=== PATIENT | female | born 1955 | race Caucasian/White ===

== ENCOUNTER 2021-05-10 16:32 | Emergency (ER) | payer OTHER ==
--- OUTSIDE RECORDS SUMMARY | 2021-05-10 16:35 | XMS REPORT | Continuity of Care Document ---
:[address] [facility] t Address [address] [place] [address] Care Team Providers Name Role Phone LENASINTIASHAWNEE Primary Care Physician Unavailable Jagdish Attending Clinician Unavailable GERALD Attending Clinician Unavailable LAB90 Attending Clinician Unavailable Gerald HICKMAN Attending Clinician Virgilio LOPES Attending Clinician VIRGILIO Attending Clinician Unavailable Doctor Unassigned, Name Attending Clinician Unavailable Isabel RN, T Attending Clinician Unavailable Elmer LOPES, H Attending Clinician Only, Db Test Attending Clinician Unavailable Vasiliy MALDONADOP Attending Clinician Provider, Db Urgent Care Attending Clinician Unavailable JUAN Attending Clinician Unavailable SIDDHARTH Attending Clinician Unavailable MD MOOK MESSINA Attending Clinician Unavailable THEAndrews Attending Clinician Unavailable PRASANNABURR Attending Clinician Unavailable VIRGILIO Admitting Clinician Unavailable SIDDHARTH Admitting Clinician Unavailable MD MOOK MESSINA Admitting Clinician Unavailable Payers Payer Name Policy Type Policy Number Effective Date Expiration Date S ozzie HUMANA MEDICARE 7 [id number] 2021 [id number] GOLD 00:00:00 PLUS 2021 Problems Condition Condition Condition Status Onset Resolution Last Treating Co mments Source Name Details Category Date Date Treatment Clinician Date Primary Primary Disease Active Haley hypertensi hypertensi 3-14 Se ybold on on 00:00: 00 Bipolar 1 Bipolar 1 Disease Active Cruz sey disorder disorder 3-14 Seybol d 00:00: 00 Mixed Mixed Disease Active Haley hyperlipid hyperlipid 3-14 Se ybold emia emia 00:00: 00 Simple Simple Disease Active Haley chronic chronic 3-14 Seybold bronchitis bronchitis 00:00: 00 Herpes Herpes Disease Active Haley simplex simplex 3-14 Seybold infection infection 00:00: of of 00 genitourin genitourin lg system lg system Herpes Herpes Disease Active Haley labialis labialis 3-14 Seybol d 00:00: 00 Allergies, Adverse Reactions, Alerts Allergy Allergy Status Severity Reaction(s) Onset Inactive Treating Comm ents Source Name Type Date Date Clinician Sulfa Propensi Active Itching Haley Drugs ty to 3-14 Seybold adverse 00:00: reaction 00 s Sulfa Propensi Active Itching Univers (Sulfona ty to 1-15 ity of mide adverse 00:00: [place] Antibiot reaction 00 Medica l ics) s Branch SULFA Drug Active ITCHING Univers (SULFONA Class 1-15 ity of MIDE 00:00: [place] ANTIBIOT 00 Medical ICS) Branch NO KNOWN Drug Active Univers ALLERGIE Class ity of S [facility] Branch Social History Social Habit Start Date Stop Date Quantity Comments Source Exposure to Not sure [facility] SARS-CoV-2 [place] [facility] (event) Branch History of Cigarette Smoker Haley Mahogany mccainboestevan tobacco use Sex [birth year] Haley jimenez 00:00:00 00:00:00 Smoking Status Start Date Stop Date Source Unknown if ever smoked Universit y [facility] [place] [facility] Branch Smokes tobacco daily 2021-05-08 00:00:00 Haley Fredy Medications Ordered Filled Start Stop Current Ordering Indication Dosage Frequency Signature Comments Components Source Medication Medication Date Date Medication? Clinician (SIG) Name Name Budesonide- 2021- No INHALE 2 K hernandoy Formoterol 05-08 PUFFS Seybold Fumarate 11:43: 00:00 TWICE 160-4.5 18 :00 DAILY MCG/ACT inhalation Aerosol Duloxetine 2021- No TAKE 1 Claudia mccain HCl 60 MG 3-14 03-14 CAPSULE BY Sey bold oral Cap DR 11:43: 00:00 MOUTH Particles 18 :00 TWICE A DAY for 90 Levocetiriz 2021- No TONY 1 Claudia ey ine -08 05-14 TABLET BY Seybold Dihydrochlo 11:43: 00:00 MOUTH IN ride 5 MG 18 :00 THE oral Tablet EVENING ONCE A DAY for 90 Montelukast 2021- No TAKE 1 Cruz sey (SINGULAIR) -08 05-14 TABLET BY Se ybold 10 MG oral 11:43: 00:00 MOUTH ONCE Tablet 18 :00 A DAY for tablet 90 days Nebivolol 2021- No TAKE 1 Kelse y HCl 5 MG -08 05- TABLET BY Seybo ld oral Tablet 11:43: 00:00 MOUTH ONCE 18 :00 A DAY for 90 days Trazodone 2021- No every 24 Cruz sey HCl 150 MG -14 -14 hours Seybold oral Tablet 11:43: 00:00 18 :00 Aripiprazol 2021- No 15mg Take 15 mg Haley e (Abilify) -08 05-14 by mouth Sey bold 15 MG oral 11:43: 00:00 in the Tablet 18 :00 morning and 15 mg in the evening. Ibuprofen Yes 1 tab Oral Ke lsey 600 MG oral 3-14 q 6 hours Sey bold Tablet 10:52: 47 Nitroglycer Yes 1 tab(s) Ke lsey in 0.4 3-14 SL prn Seybold MG/HR 10:52: transdermal 47 PATCH 24 HR Ezetimibe Yes TAKE 1 Haley 10 MG oral 3-14 TABLET BY Seyb old Tablet 10:52: MOUTH ONCE 47 A DAY for 90 days FLUTICASONE Yes USE 2 Kelse y PROPIONATE, 3-14 SPRAYS IN Sey bold NASAL, 50 10:52: EACH MCG/ACT 47 NOSTRIL nasal TWICE Suspension DAILY for 30 Valacyclovi Yes [id number] 500mg Take 1 Haley r HCl 3-14 tablet Seybold (Valtrex) 00:00: (500 mg 500 MG oral 00 total) by Tablet mouth in the morning and 1 tablet (500 mg total) in the evening. Nebivolol Yes [id number] 5mg Take 1 Ke lsey HCl 5 MG 3-14 tablet (5 Seybol d oral Tablet 00:00: mg total) 00 by mouth in the morning. Aripiprazol Yes [id number] 15mg Take 1 Haley e (Abilify) 3-14 tablet (15 Se ybold 15 MG oral 00:00: mg total) Tablet 00 by mouth in the morning and 1 tablet (15 mg total) in the evening. Duloxetine Yes [id number] 60mg Take 1 Haley HCl 60 MG 3-[address] oral Cap DR 00:00: (60 mg Particles 00 total) by mouth in the morning and 1 capsule (60 mg total) in the evening. Albuterol Yes [id number] 1{vial} Take 1 Haley (PROVENTIL) 3-14 vial by Seybo ld (2.5 00:00: nebulizati MG/3ML) 00 on every 6 0.083% (six) inhalation hours Inhalant Solution Budesonide- Yes [id number] 2{puff} Inhale 2 Haley Formoterol 3-14 puffs into Sey bold Fumarate 00:00: the lungs 160-4.5 00 in the MCG/ACT morning inhalation and 2 Aerosol puffs in the evening. Gabapentin Yes [id number] 600mg Take 1 Haley 600 MG oral 3-14 tablet Seybol d Tablet 00:00: (600 mg 00 total) by mouth in the morning and 1 tablet (600 mg total) in the evening. Levocetiriz 0 Yes [id number] 5mg Take 1 Haley ine 3-14 tablet (5 Seybold Dihydrochlo 00:00: mg total) ride 5 MG 00 by mouth oral Tablet every day at 5:00 PM Montelukast 2021-0 Yes [id number] 10mg Take 1 Haley (SINGULAIR) 3-14 tablet (10 Se ybold 10 MG oral 00:00: mg total) Tablet 00 by mouth tablet nightly Pregabalin 0 Yes [id number] 150mg Take 1 Haley 150 MG oral 3-14 capsule Seybo ld Capsule 00:00: (150 mg 00 total) by mouth 3 times daily Trazodone Yes [id number] 100mg Take 1 Haley HCl 100 MG - tablet Seybold oral Tablet 00:00: (100 mg 00 total) by mouth every 24 hours Diclofenac Yes TAKE 1 Kelse y Sodium 75 -09 TABLET BY Seybo ld MG oral 00:00: MOUTH 2 Tablet 00 TIMES Delayed DAILY WITH Response MEALS FOR MUSCLE/KYLE NT/BACK PAIN AND INFLAMMATI ON Gabapentin 2021- No TAKE 1 Claudia ey 600 MG oral 05-03 TABLET(S) Se ybold Tablet 00:00: 00:00 BY MOUTH 00 :00 TWICE DAILY FOR NERVE PAIN Pregabalin 2021- No 1{capsu 1 capsule Haley 150 MG oral 04-27 le} every 6 Seyb old Capsule 00:00: 00:00 (six) 00 :00 hours Ipratropium 2021- Yes every 6 Ke lsey [place] HFA 03-20 () Seybol d 17 MCG/ACT 00:00: 04:59 hours inhalation 00 :00 Aerosol Solution NaCl 0.9% 2021- No 1000mL at 999 Uni vers (NS) bolus 1-15 01-15 mL/hr, ity of infusion 16:15: 17:50 1,000 mL, Vern as 1,000 mL 00 :00 IV Medical Infusion, Branch ONCE, 1 dose, On 03/11/21 at 1015, STAT methocarbam Yes [id number] 500mg Take 1 Univers oL 500 mg 1-15 tablet by ity o f tablet 00:00: mouth 4 [place] 00 (four) Medical times Branch daily. Nebulizer Yes as Haley does not 05-19 directed Seybfazal apply Misc 00:00: inhalation 00 as directed for 30 days Albuterol 2021- No every 6 Claudia ey (PROVENTIL) 05-19-14 (six) Seybol d (2.5 00:00: 00:00 hours MG/3ML) 00 :00 0.083% inhalation Inhalant Solution Immunizations Ordered Immunization Filled Immunization Date Status Commen ts Source Name Name Covid-19 Vaccine 2020-11-02 Completed Haley S eybold Moderna (Spikevax), 00:00:00 Mrna-lnp, Jeremi Protein, Pf Covid-19 Vaccine 2020-10-05 Completed Haley bhardwaj Moderna (Spikevax), 00:00:00 Mrna-lnp, Jeremi Protein, Pf Pneumococcal 2020-06-23 Completed Haley Sheppard ld Vaccine, Conjugate 00:00:00 13 Vital Signs Vital Name Observation Time Observation Value Comments Source Systolic blood 2021-05-08 15:33:00 118 mm[Hg] Haley Daniel pressure Diastolic blood 2021-05-08 15:33:00 72 mm[Hg] Marily Daniel pressure Heart rate 2021-05-08 15:33:00 76 /min Haley bhardwaj Body temperature 2021-05-08 15:33:00 36.56 Meme Claudia Daniel Respiratory rate 2021-05-08 15:33:00 12 /min Claudia mccain Seybfazal Body height 2021-05-08 15:33:00 165.1 cm Haley bhardwaj Body weight 2021-05-08 15:33:00 81.647 kg Haley bhardwaj BMI 2021-05-08 15:33:00 29.95 kg/m2 Haley bhardwaj Diastolic blood 2021-03-11 17:50:00 72 mm[Hg] [facility] Heart rate 2021-03-11 17:50:00 64 /min [facility] Respiratory rate 2021-03-11 17:50:00 14 /min [facility] Oxygen saturation in 2021-03-11 17:50:00 100 /min [facility] Arterial blood by [facility] Pulse oximetry Branch Systolic blood 2021-03-11 17:50:00 111 mm[Hg] [facility] Body temperature 2021-03-11 14:14:00 36.67 Meme [facility] Body height 2021-03-11 14:14:00 165.1 cm [facility] Body weight 2021-03-11 14:14:00 90.719 kg [facility] BMI 2021-03-11 14:14:00 33.28 kg/m2 [facility] Procedures Procedure Date / Time Performing Clinician Source Performed CT HEAD WO CONTRAST 2021-03-11 15:35:45 Tony Poole [facility] XR SACRUM AND COCCYX 2021-03-11 15:34:59 [facility] XR HIPS 2 VW RIGHT 2021-03-11 15:34:59 Tony Poole [facility] XR SHOULDER 2+ VW LEFT 2021-03-11 15:34:59 Tony Poole [facility] TROPONIN I 2021-03-11 14:58:00 Tony Poole [facility] COMP. METABOLIC PANEL 2021-03-11 14:58:00 Tony Poole [facility] ([id number]) [facility] Branch ETHANOL 2021-03-11 14:58:00 Tony Poole [facility] CBC WITH DIFF 2021-03-11 14:58:00 Tony Poole [facility] PROTHROMBIN TIME / INR 2021-03-11 14:58:00 Tony Poole [facility] ACTIVATED PARTIAL 2021-03-11 14:58:00 Tony Poole [facility] THRMPLAS [facility] URINALYSIS 2021-03-11 14:58:00 Tony Poole [facility] N-TERMINAL PRO-BNP 2021-03-11 14:58:00 Tony Poole [facility] COVID-19 (ID NOW RAPID 2021-03-11 14:58:00 Tony Poole [facility] TESTING) [facility] URINE DRUG (IMMUNOASSAY) 2021-03-11 14:58:00 Tony Poole [facility] DRUG Medical [facility] SCREEN W/O REFLEX NOTICE OF PRIVACY 2021-03-11 13:50:52 Doctor Unassigned, No Univ [facility] PRACTICES Name Medical Branch Encounters Start End Encounter Admission Attending Care Care Encounter Source Date/Time Date/Time Type Type Clinicians Facility Department ID 2021-05-04 [facility] [id number] Health 10:01:02 Saman 0310 [facility] 2021-04-27 Outpatient Jagdish, H[facility] H[facility] [id number] Health 11:49:01 Saman 0303 [facility] 2021-03-22 Out[facility] Jagdish[facility] [id number] [facility] Health 14:37:48 Saman 0119 [facility] 2021-03-22 [facility] Jagdish[facility] [id number] 22 Health 14:36:59 Saman 0118 [facility] 2021-03-22 [facility] [id number] 22 Health 14:35:22 Saman 0113 [facility] 2021-03-22 Outpatient Jagdish, [facility] [id number] 22 Health 14:34:18 Saman 0112 [facility] 2021-03-22 [facility] [id number] 21 Health 14:25:39 Saman 1216 [facility] 2021-03-22 [facility] [id number] 21 Health 14:24:46 Saman 1214 [facility] 2021-03-22 [facility] [id number] Health 14:15:52 Saman 1119 [facility] 2021-03-22 [facility]ish[facility] [id number] 21 Health 14:02:11 Saman 1019 [facility] 2021-03-22 [facility] [id number] 21 Health 13:31:51 Saman 0729 [facility] 2021-03-22 Out[facility] Jagdish[facility] [id number] 21 Health 13:06:03 Saman LOPES 0521 Cent er [facility] 2021-03-22 Out[facility] Jagdish, [facility] [id number] 21 Health 13:05:29 Saman LOPES 0520 Cent er [facility] 2021-03-22 Out[facility], [facility] [id number] 21 Health 13:05:11 Saman LOPES 0519 Cent er [facility] 2021-03-22 Out[facility], [facility] [id number] 21 Health 13:02:40 Saman LOPES 0512 Cent er of [facility] 2021-03-22 Outpatient [facility]dish, [facility] [id number] 21 Health 13:01:16 Saman LOPES 0510 Cent er of [facility] 2021-03-22 [facility] [id number] 21 Health 12:58:20 Saman LOPES 0503 Cent er [facility] 2021-05-10 2021-05-10 Outpatient HALEY DUARTE [id number] Haley 00:00:00 00:00:00 CAROLANN Seybol d 2021-05-10 2021-05-10 Outpatient HALEY DUARTE [id number] Haley 00:00:00 00:00:00 CAROLANN Seybol d 2021-05-10 2021-05-10 Outpatient PREHALEY BARAHONA [id number] Haley 00:00:00 00:00:00 CAROLANN Seybol d 2021-05-08 2021-05-08 Outpatient LAB90 HALEY ABARCA [id number] Haley 11:55:00 11:55:00 Seybol d 2021-05-08 2021-05-08 Office Henok Duarte [id number] Haley 10:15:00 10:45:00 Visit Carolann Wang [id number] barbara [id number] 2021-05-08 2021-05-08 Outpatient HALEY DUARTE [id number] Haley 00:00:00 00:00:00 CAROLANN Seybol d 2021-05-03 2021-05-03 ambulatory HCSET HCSET [id number] Health 00:00:00 00:00:00 [facility] 2021-04-28 2021-04-28 ambulatory HCSET HCSET [id number] Health 00:00:00 00:00:00 [facility] 2021-04-27 2021-04-27 ambulatory HCSET HCSET [id number] Health 00:00:00 00:00:00 [facility] 2021-04-27 2021-04-27 ambulatory HCSET HCSET [id number] Health 00:00:00 00:00:00 [facility] 2021-04-26 2021-04-26 ambulatory HCSET HCSET [id number] Health 00:00:00 00:00:00 [facility] 2021-03-28 2021-03-28 amb[facility] [id number] Health 00:00:00 00:00:00 [facility] 2021-03-20 2021-03-20 ambulatory HCSET HCSET [id number] Health 00:00:00 00:00:00 [facility] 2021-03-15 2021-03-15 amb[facility] [id number] Health 00:00:00 00:00:00 [facility] 2021-03-15 2021-03-15 amb[facility] [id number] Health 00:00:00 00:00:00 [facility] 2021-03-11 2021-03-[address] [facility] [id number] Univers 08:20:00 11:53:00 Tony JONES [id number] i ty of [place] 4[place]2.7.2.686 [place] [facility] [id number] [facility] [address] 2021-03-11 2021-03-[address] [facility] ERT [id number] Univers 08:20:00 11:53:00 TONY artis [facility] 2021-03-11 2021-03-11 Orders Doctor DURAND [id number] Univers 00:00:00 00:00:00 Only Unassigned, FRITZ 350.1.13.10 ity of [place] [facility] 4.2.7.2.686 Vern as [id number] [facility] 009 Branch 2021-03-05 2021-03-05 Letter KIZZY Hall [id number] Univers 00:00:00 00:00:00 (Out) Kadie HU [id number] it y of [facility] 4.2.7.2.686 Vern as [id number] [facility] 019 Branch 2021-03-05 2021-03-05 Elisabeth Payne PACORIE [id number] Univers 00:00:00 00:00:00 (Out) [facility] [id number] i ty of [place] 4.2.7.2.686 Vern as SANTIAGO?BLEA [id number] Ar dical [facility] [address] MEDICAL OFFICE BUILDING 2021-03-03 2021-03-03 Laboratory Only, Ang Db Test [facility] 1.2.8 [id number] [facility] 20:45:00 20:48:56 Only Mariaelena Amanda [facility] [id number] ity of [place] 4.2.7.2.686 Vern as [place]O?BLEA [id number] Ar dical [address] MEDICAL OFFICE BUILDING 2021-03-03 2021-03-03 Letter Provider, [place] [id number] [facility] 00:00:00 00:00:00 (Out) Ang Db HEALTH [id number] it y of Urgent [facility] 4.2.7.2.686 [place] S[place]?BLEA [id number] [address] MEDICAL OFFICE [facility] 2021-01-20 2021-01-21 Emergency MARTINEZ, [facility] [id number] [place] 00:00:00 00:00:00 MYKEL 762 Method i 2020-12-06 2020-12-06 Outpatient [facility] [id number] 300 [place] 00:00:00 00:00:00 YASSIR 451 Method i 2020-12-02 2020-12-02 Outpatient SIDDHARTH, [facility] [id number] 301 [place] 00:00:00 00:00:00 YASSIR 279 Method i 2020-12-02 2020-12-02 Outpatient JAGDISH, [facility] [id number] [place] 00:00:00 00:00:00 SAMAN 321 Method i 2020-10-19 2020-10-19 Outpatient THEKDI, [facility] [id number] 350 [place] 00:00:00 00:00:00 BRIDGETT 226 Method i 2020-09-21 2020-09-21 Outpatient SIDDHARTH, [facility] [id number] [place] 00:00:00 00:00:00 YASSIR 513 Method i 2019-11-30 2019-11-30 Outpatient WOODBURR, [facility] [id number] [place] 00:00:00 00:00:00 JULIA [address] Results Test Description Test Time Test Comments Results Result Comments Source TROPONIN I 2021-03-11 16:12:56 Test Item Value Reference Range Interpretation Comme nts TROPONIN I (test code = 0.001 ng/mL See_Comment [Au tomated message] The [id number]) system which ge nerated this result tra nsmitted reference range : <=0.034. The reference r mimi was not used to int erpret this result as normal/abnormal . JANET (test code = JANET) Reference (Normal) Range (defined by the 99th percentile reference limit): <= 0.034 ng/mL Note: Cardiac troponin begins to rise 3-4 hours after the onset of ischemia. Repeat in 4-6 hours if the sample was drawn within 3-4 hours of the onset of the symptom and found normal. Diagnosis of myocardial injury is made with acute changes in cTn concentrations with at least one serial sample above the 99th percentile upper reference limit (URL), taken together with the patient's clinical presentation. Biotin has been reported to cause a negative bias, interpret results relative to patient's use of biotin. Lab Interpretation Normal (test code = 74043-5) [facility] [id number] 16:09:35 Test Item Value Reference Range Interpretation Comments NT-proBNP (test code 166 pg/mL See_Comment H [Autom ated = [id number]) message] The system which generated this result transmitted reference range : <=125. The reference range was not used to interpret this result as normal/abnormal . JANET (test code = JANET) Biotin has been reported to cause a negative bias, interpret results relative to patient's use of biotin. Lab Interpretation Abnormal (test code = 31483-3) [facility]22-[facility]-15 15:52:29 Test Item Value Reference Range Interpretation Comments ALCOHOL (test code = <10 mg/dL 3062411710) JANET (test code = JANET) <10 [id number] Toxic>100 Depression of [employer]>400 Fatalities Reported [facility] Worth[facility]. METABOLIC PANEL ([id number])2021-03-11 15:51:53 Test Item Value Reference Range Interpretation Comments NA (test code = 138 mmol/L 135-145 0400061847) K (test code = 4.2 mmol/L 3.5-5.0 5422309378) CL (test code = 102 mmol/L 98-108 8192349677) CO2 TOTAL (test code 30 mmol/L 23-31 = 1111446871) AGAP (test code = 2-16 0841734149) BUN (test code = 20 mg/dL 7-23 6026655096) GLUCOSE (test code = 96 mg/dL 70-110 3386101382) CREATININE (test code 0.61 mg/dL 0.50-1.04 = 8251680289) TOTAL BILI (test code 0.5 mg/dL 0.1-1.1 = 9325261372) CALCIUM (test code = 8.9 mg/dL 8.6-10.6 2349110620) T PROTEIN (test code 6.8 g/dL 6.3-8.2 = 4781560417) ALBUMIN (test code = 4.1 g/dL 3.5-5.0 9251552980) ALK PHOS (test code = 65 U/L 34-122 7806758902) ALTv (test code = 33 U/L 5-35 2-6) AST(SGOT) (test code 32 U/L 13-40 = 7084007319) eGFR (test code = mL/min/1.73m2 0359423831) JANET (test code = JANET) Association of Glomerular Filtration Rate (GFR) and Staging of Kidney Disease* + + +- +| GFR (mL/min/1.73 m2) ?| With Kidney Damage ?| ?Without Kidney Damage+ ------+ ----+ ------+| ?>90 ?| ?Stage one ?| ? Normal ?+ -+ + -+| ?60-89 ?| ?Stage two ?| ? Decreased GFR ? + + +- +| ?30-59 ?| ?Stage three ?| ? Stage three ? + + +- +| ?15-29 ?| ?Stage four ? | ? Stage four ?+ -+ + -+| ?<15 (or dialysis) ? ?| ?Stage five ? | ? Stage five ?+ -+ + -+ *Each stage assumes the associated GFR level has been in effect for at least three months. ?Stages 1 to 5, with or without kidney disease, indicate chronic kidney disease. Notes: Determination of stages one and two (with eGFR >59mL/min/1.73 m2) requires estimation of kidney damage for at least three months as defined by structural or functional abnormalities of the kidney, manifested by either:Pathological abnormalities or Markers of kidney damage (including abnormalities in the composition of the blood or urine or abnormalities in imaging tests). [facility] PARTIAL THRMPLAS [id number] 15:40:11 Test Item Value Reference Range Interpretation Comments APTT Patient (test See_Comment [Automat ed code = 3173-2) message] The system which generated this result transmitted reference range : 23 - 38 Seconds . The reference range was not used to interpr et this result as normal/abnormal . JANET (test code = JANET) The [facility] patient population mean normal value for aPTT is 30 seconds. Lab Interpretation Normal (test code = 52013-0) [facility] WorthPROTHROMBIN TIME / [id number] 15:37:35 Test Item Value Reference Range Interpretation Comments PROTIME PATIENT (test See_Comment [Auto mated message] code = 5964-2) The system wh ich generated this result transmitted ref erence range: 12.0 - 1 4.7 Seconds. The re ference range was not u sed to interpret this result as normal/abnor mal. INR (test code = 6301-6) Nor mal INR <1.1; Warfarin Therap eutic range 2.0 to 3. 0 or 2.5 to 3.5, dep ending upon the indica tions. Lab Interpretation (test Normal code = 24656-5) [facility] Worth[facility] WITH [id number] 15:21:31 Test Item Value Reference Range Interpretation Comments WBC (test code = See_Comment [Automated 2190-2) message] The sy stem which generated this result transmitted reference range : 4.30 - 11.10 10*3/?L. The reference range was not used to interpret this result as normal/abnormal . RBC (test code = See_Comment [Automated 089-8) message] The sy stem which generated this result transmitted reference range : 3.93 - 5.25 10*6/?L. The reference range was not used to interpret this result as normal/abnormal . HGB (test code = 14.6 g/dL 11.6-15.0 718-7) HCT (test code = 44.7 % 35.7-45.2 4544-3) MCV (test code = 97.0 fL 80.6-95.5 H 787-2) MCH (test code = 31.7 pg 25.9-32.8 785-6) MCHC (test code = 32.7 g/dL 31.6-35.1 786-4) RDW-SD (test code = 45.2 fL 39.0-49.9 85640-0) RDW-CV (test code = 12.6 % 12.0-15.5 788-0) PLT (test code = See_Comment [Automated 777-3) message] The sy stem which generated this result transmitted reference range : 166 - 358 10*3/ ?L. The reference r mimi was not used to interpret this result as normal/abnormal . MPV (test code = 10.7 fL 9.5-12.9 20350-6) NRBC/100 WBC (test See_Comment [Automat ed code = 0685162716) message] The system which generated this result transmitted reference range : 0.0 - 10.0 /100 WBCs. The refer ence range was not u sed to interpret th is result as normal/abnormal . NRBC x10^3 (test code <0.01 See_Comment [Auto mated = [id number]) message] The s ystem which generated this result transmitted reference range : 10*3/?L. The reference range was not used to interpret this result as normal/abnormal . GRAN MAT (NEUT) % 62.3 % (test code = 770-8) IMM GRAN % (test code 0.30 % = 3739727143) LYMPH % (test code = 23.0 % 736-9) MONO % (test code = 9.7 % 5905-5) EOS % (test code = 4.1 % 713-8) BASO % (test code = 0.6 % 706-2) GRAN MAT x10^3(ANC) 4.92 10*3/uL 1.88-7.09 (test code = 5232297278) IMM GRAN x10^3 (test <0.03 0.00-0.06 code = 2524566079) LYMPH x10^3 (test code 1.82 10*3/uL 1.32-3.29 = 731-0) MONO x10^3 (test code 0.77 10*3/uL 0.33-0.92 = 742-7) EOS x10^3 (test code = 0.32 10*3/uL 0.03-0.39 711-2) BASO x10^3 (test code 0.05 10*3/uL 0.01-0.07 = 704-7) Lab Interpretation Abnormal (test code = 28290-2) [facility] [Presence] in Respiratory specimen by NICKIE with probe [id number] 18:35:10 Test Item Value Reference Range Interpretation Comments SARS-CoV-2 (COVID-19) RNA Not detected Not-Detected [Presence] in Respiratory specimen by NICKIE with probe detection (test code = 29286-8) Whether patient is employed in a healthcare setting (test code = 43385-2) Whether the patient has symptoms related to condition of interest (test code = 65678-4) Patient was hospitalized because of this condition (test code = 69289-7) Whether the patient was admitted to intensive care unit (ICU) for condition of interest (test code = 96988-1) Whether patient resides in a congregate care setting (test code = 05005-0)"
--- NOTE | 2021-05-10 17:51 | EDPHYS ---
Physician Documentation [facility] Name: Dilia Peña Age: 65 yrs Sex: Female : 1955 Arrival Date: 05/10/2021 Time: 16:38 Bed 25 Private MD: Lenin Duarte ED Physician Aidan Gould HPI: 05/10 17:33 This 65 yrs old Female presents to ER via Ambulatory with complaints of Vaginal Pain. jr8 17:33 The patient presents with a possible exposure to a sexually transmitted disease, jr8 herpes. Onset: The symptoms/episode began/occurred gradually, 2 week(s) ago. Modifying factors: The symptoms are alleviated by nothing, the symptoms are aggravated by movement, pressure, urinating. Associated signs and symptoms: The patient has no apparent associated signs or symptoms. Severity of symptoms: At their worst the symptoms were mild, in the emergency department the symptoms are unchanged. The patient has not experienced similar symptoms in the past. The patient has been recently seen by a physician:. Patient stated that she was recently tested for syphilis, HIV, hepatitis, gonorrhea, chlamydia which were all negative. Started to have a lesion about 2 weeks ago to her external left labia. Came in for further testing.. Historical: - Allergies: 16:53 sulfa; ag7 - Home Meds: 16:53 Albuterol Inhl [Active]; aripiprazole oral [Active]; budesonide-formoterol inhalation ag7 [Active]; diclofenac oral [Active]; duloxetine oral [Active]; ezetimibe oral [Active]; gabapentin oral [Active]; ibuprofen Oral [Active]; levocetirizine oral [Active]; montelukast oral [Active]; Valacyclovir Oral [Active]; Trazodone Oral [Active]; - Immunization history:: Client reports receiving the 2nd dose of the Covid vaccine, Flu vaccine is not up to date. Patient has never been vaccinated. - Social history:: Smoking status: unknown. ROS: 17:33 Constitutional: Negative for fever, chills, and weight loss, Cardiovascular: Negative jr8 for chest pain, palpitations, and edema, Respiratory: Negative for shortness of breath, cough, wheezing, and pleuritic chest pain, Abdomen/GI: Negative for abdominal pain, nausea, vomiting, diarrhea, and constipation, Neuro: Negative for headache, weakness, numbness, tingling, and seizure. 17:33 : Positive for External labial pain, Negative for urinary symptoms, vaginal bleeding, vaginal discharge, vaginal itching. Exam: 17:33 Constitutional: This is a well developed, well nourished patient who is awake, alert, jr8 and in no acute distress. Cardiovascular: Regular rate and rhythm with a normal S1 and S2. No gallops, murmurs, or rubs. Normal PMI, no JVD. No pulse deficits. Respiratory: Lungs have equal breath sounds bilaterally, clear to auscultation and percussion. No rales, rhonchi or wheezes noted. No increased work of breathing, no retractions or nasal flaring. Abdomen/GI: Soft, non-tender, with normal bowel sounds. No distension or tympany. No guarding or rebound. No evidence of tenderness throughout. Skin: Warm, dry with normal turgor. Normal color with no rashes, no lesions, and no evidence of cellulitis. MS/ Extremity: Pulses equal, no cyanosis. Neurovascular intact. Full, normal range of motion. Neuro: Awake and alert, GCS 15, oriented to person, place, time, and situation. Motor strength 5/5 in all extremities. Sensory grossly intact. 17:33 : Pelvic Exam: External exam: reveals ulcerations on external genitalia, Left external lower labia at the 5 o'clock position. No other lesions noted, discharge, is not appreciated, the nurse was present for the exam. Vital Signs: 16:51 BP 119 / 88; Pulse 73; Resp 20 S; Temp 98.2(TE); Pulse Ox 96% on R/A; Weight 81.19 kg ag7 (R); Height 5 ft. 5 in. (165.10 cm) (R); Pain 0/10; 17:58 BP 112 / 43; Pulse 56; Resp 18; Pulse Ox 97% on R/A; ss7 16:51 Body Mass Index 29.79 (81.19 kg, 165.10 cm) ag7 MDM: 16:43 Patient medically screened. jr8 17:48 Data reviewed: vital signs, nurses notes, lab test result(s), and as a result, I will jr8 discharge patient. Data interpreted: Pulse oximetry: on room air is 96 %. Interpretation: normal. Counseling: I had a detailed discussion with the patient and/or guardian regarding: the historical points, exam findings, and any diagnostic results supporting the discharge/admit diagnosis, lab results, the need for outpatient follow up, a family practitioner, to return to the emergency department if symptoms worsen or persist or if there are any questions or concerns that arise at home. ED course: Discussed with patient that we will send the DNA amplification swab for herpes simplex off. Will take a few days to come back. In the meantime we will continue her Valtrex. To maintain abstinence for now as well.. 05/10 17:50 Order name: HSV Culture and Typing EDMS Administered Medications: No medications were administered Disposition: 20:53 Co-signature as Attending Physician, Aidan Gould DO I agree with the assessment and ms3 plan of care. Disposition Summary: 05/10/21 17:50 Discharge Ordered Location: Home jr8 Problem: new jr8 Symptoms: have improved jr8 Condition: Stable jr8 Diagnosis - Ulceration of vagina jr8 Followup: jr8 - With: Lenin Duarte DO - When: 1 week - Reason: Recheck today's complaints, Continuance of care, Re-evaluation by your physician Discharge Instructions: - Discharge Summary Sheet jr8 - Genital Herpes jr8 Forms: - Medication Reconciliation Form jr8 - Thank You Letter jr8 - Antibiotic Education jr8 - Prescription Opioid Use jr8 Prescriptions: - Valtrex 500 mg Oral Tablet - take 1 tablet by ORAL route once daily; 14 tablet; Refills: 0, Product jr8 Selection Permitted Signatures: Dispatcher [employer] EDMO Shreyas Andrade PA PA jr8 Aidan Gould DO DO ms3 Alesha Oliveria, RN RN ss7 Lizy Hodges RN RN ag7
--- NOTE | 2021-05-10 17:51 | ER ---
Nurse's Notes [facility] Name: Dilia Peña Age: 65 yrs Sex: Female : 1955 Arrival Date: 05/10/2021 Time: 16:38 Bed 25 Private MD: Lenin Duarte Diagnosis: Ulceration of vagina Presentation: 05/10 16:51 Chief complaint: Patient states: "Lesions on the vagina that's bleeding for two weeks". ag7 Coronavirus screen: Client denies travel out of the [place] in the last 14 days. At this time, the client does not indicate any symptoms associated with coronavirus-19. Ebola Screen: No symptoms or risks identified at this time. Initial Sepsis Screen: Does the patient meet any 2 criteria? No. Patient's initial sepsis screen is negative. Does the patient have a suspected source of infection? No. Patient's initial sepsis screen is negative. Risk Assessment: Do you want to hurt yourself or someone else? Patient reports no desire to harm self or others. Onset of symptoms was May 17, 2021. 16:51 Method Of Arrival: Ambulatory 7 16:51 Acuity: MEHUL 3 ag7 Historical: - Allergies: 16:53 sulfa; ag7 - Home Meds: 16:53 Albuterol Inhl [Active]; aripiprazole oral [Active]; budesonide-formoterol inhalation ag7 [Active]; diclofenac oral [Active]; duloxetine oral [Active]; ezetimibe oral [Active]; gabapentin oral [Active]; ibuprofen Oral [Active]; levocetirizine oral [Active]; montelukast oral [Active]; Valacyclovir Oral [Active]; Trazodone Oral [Active]; - Immunization history:: Client reports receiving the 2nd dose of the Covid vaccine, Flu vaccine is not up to date. Patient has never been vaccinated. - Social history:: Smoking status: unknown. Screenin:11 Abuse screen: Denies threats or abuse. Nutritional screening: No deficits noted. ss7 Tuberculosis screening: No symptoms or risk factors identified. Fall Risk None identified. Assessment: 17:10 General: Appears in no apparent distress. Behavior is calm, cooperative, appropriate ss7 for age. Pain: Denies pain. Neuro: No deficits noted. Cardiovascular: Heart tones S1 S2. Respiratory: Breath sounds are clear bilaterally. GI: No deficits noted. : Reports lesions to labia with + bleeding. EENT: No deficits noted. Derm: No deficits noted. Musculoskeletal: No deficits noted. Vital Signs: 16:51 BP 119 / 88; Pulse 73; Resp 20 S; Temp 98.2(TE); Pulse Ox 96% on R/A; Weight 81.19 kg ag7 (R); Height 5 ft. 5 in. (165.10 cm) (R); Pain 0/10; 17:58 BP 112 / 43; Pulse 56; Resp 18; Pulse Ox 97% on R/A; ss7 16:51 Body Mass Index 29.79 (81.19 kg, 165.10 cm) 7 ED Course: 16:38 Patient arrived in ED. mr 16:38 Lenin Duarte DO is Private Physician. mr 16:40 Shreyas Andrade [facility]. jr8 16:40 Aidan Gould DO is Attending Physician. jr8 16:41 Alesha Oliveira, AMILCAR is Primary Nurse. ss7 16:53 Triage completed. ag7 17:00 Arm band placed on left wrist. ag7 17:11 Patient has correct armband on for positive identification. Bed in low position. Call ss7 light in reach. 17:11 No provider procedures requiring assistance completed. Patient did not have IV access ss7 during this emergency room visit. 17:23 Assist provider with pelvic exam: Assessed labia only. Small ulcer noted to the left ss7 minora. 17:49 Lenin Duarte DO is Referral Physician. jr8 Administered Medications: No medications were administered Outcome: 17:50 Discharge ordered by . jr8 17:58 Discharged to home ambulatory. ss7 17:58 Condition: good 17:58 Discharge instructions given to patient, Instructed on discharge instructions, follow up and referral plans. Demonstrated understanding of instructions, follow-up care, Prescriptions given X 1. 18:09 Patient left the ED. ss7 Signatures: Diane Oliver mr Shreyas Andrade PA PA jr8 Alesha Oliveira RN RN ss7 Lizy Hodges RN RN 7
[2021-05-10 18:15] VITALS: TEMP 98.2
[2021-05-10 18:16] VITALS: BP 112/43; O2SAT 97
[2021-05-16 15:44] LABS: HSV Source Not Given
== END 2021-05-10 18:09 | disposition home or self-care (01) ==
LOC: ER 16:32
DX: N76.5 Ulceration of vagina (principal); R10.2 Pelvic and perineal pain; A60.00 Herpesviral infection of urogenital system, unspecified; Z20.2 Contact with and (suspected) exposure to infections with a predominantly sexual mode of transmission
CPT/HCPCS: 87255; 93880; 99283